=== PATIENT | female | born 1985 | race American Indian/Alaskan Native ===

== ENCOUNTER 2018-03-17 13:15 | Day surgery (SDC) | payer OTHER, MEDICAID ==
[2018-02-14 08:59] VITALS: BMI 24.4
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
[2018-03-17] MEDS ORDERED: Lidocaine 1% w Epi 1:100,000 Inj ONE (14:18)
[2018-03-17] MEDS ORDERED: EPINEPHrine 1 mg/ml (1:1000) Inj ONE (14:19)
[2018-03-17] MEDS ORDERED: Lidocaine 4% (Laryng-O-Jet) Kit MM ONE ×2 (15:10→15:19)
[2018-03-17] MEDS ORDERED: Succinylcholine Chloride 20 mg/ml Syr (5 ml) IV ONE ×2 (15:10→15:19)
[2018-03-17] MEDS ORDERED: Rocuronium 10 mg/ml (5 ml) ONE ×2 (15:10→15:18)
[2018-03-17] MEDS ORDERED: Propofol 10 mg/ml Inj (20 ML) ONE ×2 (15:10→15:18)
[2018-03-17] MEDS ORDERED: Midazolam 2 MG/2 ML VIAL ONE ×2 (15:18→15:30)
[2018-03-17] MEDS ORDERED: Neostigmine 1:1000 (1 mg/ml) Inj ONE ×2 (15:19→17:16)
[2018-03-17] MEDS ORDERED: Lidocaine 1% 5ml Abboject ONE (15:19)
[2018-03-17] MEDS ORDERED: EPINEPHrine 1 mg/ml (1:1000) Inj IV ONE (16:00)
[2018-03-17] MEDS ORDERED: Lactated Ringer's 1,000 ML IV ONE (17:32)
--- NOTE | 2018-03-17 17:44 | PCM.SURG1 ---
Surgeon's Initial Post Op Note - Surgeon's Notes Surgeon: Heather Torre MD Pig Lead Melter Helper: Chan Gaspar PA-C Type of Anesthesia: General Endo Pre-Operative Diagnosis: left hip labral tear Operative Findings: see op report Post-Operative Diagnosis: same as pre-op dx Operation Performed: Left hip arthroscopy, debridement, synovectomy, labral repair, femoroplasty, acetabuloplasty Specimen/Specimens Removed: none Estimated Blood Loss: EBL {In ML}: 3 Date of Surgery/Procedure: 03/17/18 Time of Surgery/Procedure: 15:30
[2018-03-17] MEDS ORDERED: Oxycodone/Acetaminophen 5/325 mg Tab PO PRN (17:45)
[2018-03-17] MEDS: HYDROmorphone 0.5 mg/0.5 ml ISec IVP PRN ×5 (17:54→19:25)
[2018-03-18] MEDS: Lactated Ringer's 1,000 ML IV SCH ×2 (02:48→03:45)
[2018-03-18 04:07] VITALS: RESP 20
--- NOTE | 2018-03-18 05:00 | OP ---
PROCEDURE DATE: 03/17/2018 ATTENDING PHYSICIAN: Heather Torre MD BELLSTAFF: Chan Gaspar PA-C PREOPERATIVE DIAGNOSES: 1. Left hip labral tear. 2. Left hip synovitis. 3. Left hip impingement. POSTOPERATIVE DIAGNOSES: 1. Left hip synovitis. 2. Left hip labral tear. 3. Cam impingement. 4. Pincer impingement. 5. Grade 1 chondral injury of femoral head. 6. Grade 2 chondral injury of acetabular rim. PROCEDURE: 1. Left hip arthroscopic labral repair. 2. Left hip synovectomy. 3. Left hip chondroplasty of femoral head and acetabular rim. 4. Left hip cam resection. 5. Left hip pincer resection. ANESTHESIA: General. ESTIMATED BLOOD LOSS: 5 mL. SPECIMENS: None. COMPLICATIONS: None. FINDINGS: 1. Complete anterior superior labral tear. 2. Subspine and pincer impingement. 3. Cam impingement. 4. Grade 1 chondral injury of femoral head. 5. Grade 2 chondral injury of acetabular rim. DRAINS: None. CLOSURE: Primary. FLUIDS: See anesthesia sheet. COMPLICATIONS: None. INDICATIONS: After failing a course of non-operative therapy, the patient elected to undergo the above procedure. In the office, the risks and possible complications of hip arthroscopy were discussed in detail with the patient. These risks include but are not limited to continued pain, lack of motion, infection, vascular injury, DVT/PE, nerve injury including sciatic nerve injury, peroneal nerve dysfunction, perineal nerve injury including temporary and permanent paresthesias, reflex sympathetic dystrophy, compartment syndrome, unforeseen medical and/or anesthesia complications, limb loss, and even . The patient expressed an understanding of the risks and possible benefits of the procedure, and is also aware of the alternatives to surgery. An informed consent was obtained, and was checked immediately pre-op. An accessory working portal was created, using long spinal needle, to improve visualization, better access the labrum and surrounding structures. Excessive intra-articular synovitis was cleared with a 4.0 mm full radius shaver. The hypertrophic, erythematous synovium was resected, hemostasis was maintained with the radiofrequency device. After careful inspection, the labrum was found to be fully torn and displaced from the acetabular edge. Decision was made to proceed with labral repair. Using motorized shave, all the soft tissue was removed from the edge of the acetabulum. A high speed gema was used to decorticate the bone, to promote bleeding and improve healing of repaired tissue. Rita suture tacks were used and a total of two implants were placed at the edge of acetabulum. Care was taken not the penetrate the chondral surface of acetabulum. The suture was passed around the labrum using suture passing device and labrum was securely repaired to it's anatomic position. The full radius shaver was used to mechanically debride loose chondral edges of the side of the femoral head and acetabular rim, to a stable border. Extreme care was taken to not disrupt the adjacent chondral surface. The edge of the debrided area was probed to ensure chondral stability. The acetubular Pincer lesion was noted both on pre-surgical imaging and intra-operative fluoroscopy and arthroscopy. The over coverage of the acetabulum was addressed with resection, using high-speed gema. Extreme care was taken not to injure any surrounding structure. Adequacy of resection was confirmed using fluoroscopy and was found to satisfactory. The patient was noted to have significant CAM impingement, that was noted on pre-surgical imaging studies and confirmed with intra-operative fluoroscopy and arthroscopic assessment. The leg distraction was released, hip was flexed, taken through range of motion the truly assess the borders and extent of CAM lesion. Motorized shaver was used to remove any soft tissue. Next, high-speed gema was used to remove the CAM lesion. The extent of resection was confirmed using live fluoroscopy and found to be adequate. Post-operatively, the patient was instructed to remain non-weightbearing status and limited range of motion until further instructed. Follow up in the office in 7 to 10 days. During this procedure, I was assisted by Chan Gaspar PA-C, who assisted in positioning the patient on the operating room table as well as transferring the patient from the operating room table to the recovery room stretcher. In addition, Chan Gaspar PA-C, assisted me during the actual operative procedure by positioning the patient's extremity to allow for easier arthroscopic access to all areas of the joint. The presence of Chan Gaspar PA-C, as my operative unit assistant was medically necessary to ensure the utmost safety of the patient in the pre, intra-, and post-operative periods. Heather Torre MD [facility] # [id number]
[2018-03-18 08:03] VITALS: BP 105/70; PULSE 75; TEMP 98.1; O2SAT 98
--- NOTE | 2018-03-18 08:51 | CP.PCM.PN ---
Subjective - Date & Time of Evaluation Date of Evaluation: 03/18/18 Time of Evaluation: 08:48 - Subjective Subjective: Patient states she has hip pain but it is controlled with medication. Denies numbness/tingling/CP/SOB Objective - Vital Signs/Intake and Output Vital Signs (last 24 hours): Temp Pulse Resp BP Pulse Ox 98.1 F 75 20 105/70 98 03/18/18 08:02 03/18/18 08:02 03/18/18 08:02 03/18/18 08:02 03/18/18 08:02 - Medications Medications: Current Medications Acetaminophen (Tylenol 325mg Tab) 325 mg PO Q4 PRN PRN Reason: pain1-3 Lactated Ringer's (Lactated Ringer's) 1,000 mls @ 100 mls/hr IV .Q10H MIKI Last Admin: 03/18/18 03:45 Dose: Not Given Oxycodone/Acetaminophen (Percocet 5/325 Mg Tab) 1 tab PO Q4 PRN PRN Reason: pain4-7 Stop: 03/20/18 17:46 Last Admin: 03/17/18 22:37 Dose: 1 tab - Extremities Exam Additional comments: +ROM ankle/toes, thigh mild swelling, soft, sensation intact +Dp/PT pulses calves soft NT neg homans Assessment and Plan (1) Labral tear of left hip joint Assessment & Plan: POD#1 s/p left hip arthroscopy orthopedically stable to d/c home after PT this am NWB with crutches f/u 7-10 days call for appointment d/w Dr. Torre, agrees with above Status: Acute
--- NOTE | 2018-03-18 16:00 | RAD ---
Date of service: 03/17/2018 PROCEDURE: Fluoroscopy up to 1 hr. HISTORY: LEFT HIP COMPARISON: None TECHNIQUE: Standard protocol for this study/examination. FINDINGS: Total fluoroscopic time (continuous mode) utilized during the procedure 47.5 seconds. Total exam DLP: 10.59 (mGy). IMPRESSION: Less than 1 hr fluoroscopic assistance provided during performance of the procedure.
== END 2018-03-18 10:20 | disposition home or self-care (01) ==
LOC: H.OPSURG 13:15 → H.MEDSURG1 20:24 → H.OPSURG 03-18 10:20
PROVIDERS: ATTEND Orthopaedic Surgery
DX: M65.852 Other synovitis and tenosynovitis, left thigh (principal); M24.152 Other articular cartilage disorders, left hip; M25.852 Other specified joint disorders, left hip; S33.8XXA Sprain of other parts of lumbar spine and pelvis, initial encounter
CPT/HCPCS: 29863; 29914; 29915; 29916; 97161; G8978; G8979; G8980; J0171; J0690; J1170; J1885; J2001; J2250; J2704; J2710; J2765; J3010; J7030; J7120